=== PATIENT | male | born 1995 | race Caucasian/White ===

== ENCOUNTER 2018-02-17 15:15 | Emergency (ER) | payer SELFPAY ==
[~2018-02-17] VITALS: Ht 177.8 cm; Wt 78.7 kg
[~2018-02-17 15:15] MED LIST: HYDROCODON-ACE1 EAC7 PO; METH54T PO; MINOCYCLINE HC100 MG PO; MOTRIN800 MG PO; NAPROSYN500 MG PO; SOMA250 MG PO; ULTRACET1 TABLET PO
[2018-02-17] MEDS ORDERED: NORCO 5/3251 TABLET PO (16:29)
[2018-02-17] MEDS ORDERED: CLEOCIN300 MG PO (16:29)
[2018-02-17 16:45] VITALS: BP 140/92
== END 2018-02-17 16:45 | disposition home or self-care (01) ==
LOC: EME 15:15
DX: K08.89 Other specified disorders of teeth and supporting structures (principal); K02.9 Dental caries, unspecified
CPT/HCPCS: 99281; 99283